=== PATIENT | male | born 1990 | race African-American/Black ===

== ENCOUNTER 2019-09-26 23:34 | Emergency (ER) | payer MEDICAID ==
[~2019-09-26] VITALS: Ht 180.3 cm; Wt 78.0 kg
[2019-09-26 23:37] VITALS: BP 122/82
== END 2019-09-27 00:14 | disposition home or self-care (01) ==
LOC: ER 23:34
DX: R46.2 Strange and inexplicable behavior (principal)
CPT/HCPCS: 99283